=== PATIENT | female | born 1990 | race Hispanic/Latino ===

== ENCOUNTER 2024-12-17 00:55 | Emergency (ER) | payer SELFPAY ==
[2024-12-17 01:03] VITALS: BP 121/77
[2024-12-17 01:23] LABS: Urine Albumin 3+ (Neg - Trace); Urine Bilirubin Negative (Negative); Urine Character Cloudy (Clear); Urine Color Amber; Urine Glucose Negative (Negative); Urine Ketone Negative (Negative); Urine Leukocyte 3+ (Negative); Urine Nitrite Positive (Negative); Urine Occult Blood 4+ (Negative); Urine Urobilinogen 1+ (Neg - 1+)
[2024-12-17 01:33] LABS: Urine Amorphous Seen; Urine Red Blood Cell >100 /HPF (0-2); Urine Squamous Cell >30 /LPF (Few); Urine White Cell >100 /HPF (0-5)
[2024-12-17 01:34] LABS: Urine Bacteria Many (Negative)
[2024-12-17 03:16] LABS: HCG, Urine Qualitative Screen Negative
--- NOTE | 2024-12-17 03:17 | ED.GENMED ---
History of Present Illness
General
Chief Complaint: Urinary Symptoms
Source: patient
Time Seen by Provider: 12/17/24 02:57
Nursing documentation reviewed up to this point in time: agreed with
History of Present Illness
History of Present Illness:
Pleasant 34-year-old female presents to the emergency department with urgency, frequency, and dysuria. She did note some hematuria. Her symptoms began around 4 PM but worsened this evening. She states that she has a history of frequent UTIs about
6 years ago but has not had one since. Denies fever, chills, back pain, or shortness of breath. Reports no other complaints at this time.
Review of Systems
Review of Systems
Allergies reviewed?: Yes
All Other Systems: ROS reviewed and negative except as documented in HPI and ROS
Constitutional: Reports no symptoms
EENT: Reports no symptoms
Respiratory: Reports no symptoms
Cardiac: Reports no symptoms
ABD/GI: Reports no symptoms
: Reports dysuria, frequency, urgency and bleeding
Musculoskeletal: Reports no symptoms
Skin: Reports no symptoms
Neurological: Reports no symptoms
Endocrine: Reports no symptoms
Hematologic/Lymphatic: Reports no symptoms
Psychiatric: Reports no symptoms
Phy Exam
General Physical Exam
General Presentation: well appearing and mild distress
General age: appears stated age
General Skin: warm and dry
General Habitus: normal
General Hydration: appears well hydrated
Cardiovascular Exam
Cardiovascular Exam: regular rate/rhythm, no edema and no gallop
Pulmonary Exam
Pulmonary Exam: lungs clear and no respiratory distress
Musculoskeletal Exam
Musculoskeletal Exam: full ROM
Skin Exam
Skin Exam: normal color and warm/dry
Psychiatric Exam
Psychiatric Exam: normal mood/affect
Course
Orders/Labs/Results
Orders:
Orders
12/17/24 01:12
HCG, Urine Qualitative Screen Urgent
Date Specimen was Collected: 12/17/24
Time Specimen was Collected: 01:08
Comment: ADD ON
Urinalysis Reflex To Culture Urgent
Date Specimen was Collected: 12/17/24
Time Specimen was Collected: 01:08
Urine Microscopic Reflex Cult Urgent
Urine Culture Urgent
KENDALL Source: U
Specimen Description:
Date Specimen was Collected: 12/17/24
Time Specimen was Collected: 01:08
12/17/24 03:06
Add On- LAB Urgent
Tests Added?: urine hcg
12/17/24 03:16
Cephalexin Monohydrate [Keflex] 500 mg PO NOW STA
Phenazopyridine HCl [Pyridium] 200 mg PO NOW STA
Abnormal Lab Results
12/17/24
01:12
Ur Occult Blood Reflex 4+ A
(Negative)
Urine Nitrite (Reflex) Positive A
(Negative)
Leukocyte Esterase Rfl 3+ A
(Negative)
Urine RBC >100 A /HPF
(0-2)
Urine WBC (Reflex) >100 A /HPF
(0-5)
Urine Bacteria (Reflex) Many A
(Negative)
Urine Albumin (Reflex) 3+ A
(Neg - Trace)
Vital Signs
Initial and Last Documented VS:
Initial Vital Signs
Temp Pulse Resp BP Pulse Ox
97.7 F 79 14 121/77 100
12/17/24 01:03 12/17/24 01:03 12/17/24 01:03 12/17/24 01:03 12/17/24 01:03
Last Documented Vital Signs
Temp Pulse Resp BP Pulse Ox
97.7 F 79 14 121/77 100
12/17/24 01:03 12/17/24 01:03 12/17/24 01:03 12/17/24 01:03 12/17/24 01:03
*Critical Care Note
Total Time (30-74mins, 75-104mins- exclusive of procedures): Not Applicable
ED Attending Note
-
Portions of this chart may have been created with voice recognition software.� Occasional wrong word or��sound alike� substitutions may have occurred due to the inherent limitations of voice recognition software.
Discharge Plan
Departure
Patient Disposition: Home (Routine Discharge)
Date of Disposition: 12/17/24
Time of Disposition: 03:18
Patient with high blood pressure during this ER visit?: Yes
Condition: Good
Discharge Problem:
Urinary tract infection
Instructions: Urinary Tract Infection, Adult (DC)
Prescriptions:
New
cephalexin 500 mg capsule
500 mg PO BID 7 Days Qty: 14 0RF
phenazopyridine [Pyridium] 100 mg tablet
100 mg PO TID PRN (Reason: Pain) Qty: 7 0RF
Referrals:
[facility] [Outside]
NONE,* [Family Provider] -
Activity Restrictions/Additional Instructions:
Your prescriptions were sent electronically to the pharmacy that you specified.
It was a pleasure meeting you and taking part in your care. We hope for your continued healing and wellness.
Please read discharge instructions in their entirety. However, they are for general education and may not describe your exact diagnosis at discharge. Information on your ER visit and medical conditions were discussed with you along with appropriate
follow up information...
If indicated, please take your medications as instructed and indicated on discharge paperwork.
Please schedule a follow up appointment as directed. Call to schedule an appointment
Please return to the emergency department with ANY change in, persisting, or worsening of symptoms. If any of your symptoms do not improve, or persist, or become more severe within 6-12 hours, please return to the emergency department for further
care.
Please return to the emergency department if you develop a headache, neck pain/stiffness, fever greater than 100.4F, chest pain, shortness of breath, persistent nausea, vomiting, slurred speech, difficulty walking, numbness/tingling, weakness, signs
of infection or any other symptoms that are worrisome to you.
If you have any questions or concerns please do not hesitate to call the Hospital at or E-mail me directly at [email or web address]
Interventions
Interventions:
*Risk Screen - Suicide Last Done: 12/17/24 01:03
*General Assessment Last Done: 12/17/24 03:01
*Neglect/Abuse Screening Last Done: 12/17/24 03:01
*ED COVID-19 Vaccine History Last Done: 12/17/24 03:01
ED-Female Genitourinary Assessment Last Done: 12/17/24 03:01
Discharge Date and Time
Print Language: TURKMEN
[2024-12-17] MEDS: KEFLEX 500 MG PO (03:35)
[2024-12-17] MEDS: Pyridium 200 MG PO (03:35)
== END 2024-12-17 03:40 | disposition home or self-care (01) ==
LOC: EMR 00:55
PROVIDERS: EMERGENCY PHYSICIAN Student in an Organized Health Care Education/Training Program
DX: N39.0 Urinary tract infection, site not specified (principal); Z87.440 Personal history of urinary (tract) infections
CPT/HCPCS: 99282; 81003; 81015; 81025; 87077; 87086; 87186

== ENCOUNTER 2025-06-13 10:05 | Emergency (ER) | payer SELFPAY ==
[2025-06-13 10:13] VITALS: BP 102/71
--- NOTE | 2025-06-13 12:09 | ED.GENMED ---
History of Present Illness
General
Chief Complaint: Abdominal Pain
Source: patient
Exam Limitations: none
Time Seen by Provider: 06/13/25 11:09
Nursing documentation reviewed up to this point in time: agreed with
History of Present Illness
History of Present Illness:
34-year-old female with no significant past medical history presents with significant mid-upper abdominal pain that began yesterday. The pain radiated to both sides under the ribs, extending to the back, and was associated with pain in the R
shoulder. The patient initially thought the pain was due to gas, but it worsened progressively, accompanied by a burning sensation. When the pain became severe, the patient vomited once, large amount, which provided some relief. The pain decreased
post-vomiting but recurred later, although it was not as intense. The patient rated her current pain as 'achy'
The patient had a bowel movement before vomiting, which was initially soft but then hard, suggesting constipation. There was no change in stool color reported. Denies fever, felt chilled yesterday.
Past History
Past History
ED Past Medical History: None
ED Past Surgical History: None
Social History
Tobacco: Non-smoker
Alcohol: None
Personal:
Living: with family
Employment: Employed
Review of Systems
Review of Systems
Allergies reviewed?: Yes
All Other Systems: ROS reviewed and negative except as documented in HPI and ROS
Constitutional: Denies fever
Respiratory: Denies trouble breathing
Cardiac: Denies chest pain
ABD/GI: Reports abdominal pain, nausea and vomiting; Denies diarrhea
Phy Exam
Physical Exam
Physical Exam:
GENERAL: No acute distress. A&Ox3.
CONSTITUTIONAL: Afebrile.
EYES: clear, conjunctivae normal
ENMT: moist mucus membranes, Pharynx nl
RESPIRATORY: Regular respirations, nonlabored, lungs clear.
CARDIOVASCULAR: Regular rate and rhythm, no murmurs, no rubs.
GI: Soft, tender epigastrium, normal BS
MUSCULOSKELETAL: Moves with ease. Well perfused.
SKIN: Warm, dry, pink
PSYCH: Normal mood and affect. Well kept, interactive and appropriate
NEUROLOGIC: Awake, alert and oriented. No focal neurological deficits
Course
Orders/Labs/Results
Orders:
Orders
06/13/25 12:09
US Abdomen Complete/Upper Urgent
Comment:
Reason For Exam: pain across upper abdomen to R shoulder, n/v
06/13/25 13:36
Complete Blood Count/With Diff Urgent
Comprehensive Metabolic Panel Urgent
Lipase Urgent
Abnormal Lab Results
06/13/25
13:36
MCHC 32.7 L g/dL
(33.0-37.0)
Chloride 108 H mmol/L
(98-107)
AST 58 H U/L
(14-36)
ALT 91 H U/L
(0-35)
06/13/25 13:36
06/13/25 13:36
Vital Signs
Initial and Last Documented VS:
Initial Vital Signs
Temp Pulse Resp BP Pulse Ox
97.9 F 81 20 102/71 98
06/13/25 10:13 06/13/25 10:13 06/13/25 10:13 06/13/25 10:13 06/13/25 10:13
Last Documented Vital Signs
Temp Pulse Resp BP Pulse Ox
97.9 F 81 20 102/71 98
06/13/25 10:13 06/13/25 10:13 06/13/25 10:13 06/13/25 10:13 06/13/25 12:15
MDM/Problems Addressed
Differential Diagnosis Includes:
Cholecystitis, gastritis, PUD, pancreatitis, GERD, biliary colic
MDM/Problems Addressed:
34-year-old female with no significant past medical history presents with significant mid-upper abdominal pain that began yesterday. The pain radiated to both sides under the ribs, extending to the back, and was associated with pain in the R
shoulder. The patient initially thought the pain was due to gas, but it worsened progressively, accompanied by a burning sensation. When the pain became severe, the patient vomited once, large amount, which provided some relief. The pain decreased
post-vomiting but recurred later, although it was not as intense. The patient rated her current pain as 'achy'
The patient had a bowel movement before vomiting, which was initially soft but then hard, suggesting constipation. There was no change in stool color reported. Denies fever, felt chilled yesterday.
1:30 PM:
Ultrasound radiology report read: IMPRESSION:
Cholelithiasis; gallbladder is filled with multiple shadowing gallstones. No secondary findings for acute cholecystitis.
Common bile duct is minimally dilated for patient age measuring up to 6 mm. No intraductal calculi appreciated.
6 mm nephrolith within the midpole of the left kidney.
Awaiting lab results, patient states pain is minimal at this time
2:10 PM: Ultrasound results discussed with patient, CBC normal, CMP with mild elevation in AST, ALT, total bilirubin normal,
Lipase normal
Patient states pain is minimal at this time
Discussed bland diet, follow-up with surgery, ibuprofen as needed for pain, return instructions reviewed.. Copy of ultrasound report given to her
Case discussed with Dr. Edwards who evaluated lab work and ultrasound and agrees with assessment and plan
*Pulse Oximetry
SaO2: 98
Oxygen Mode of Delivery: Room air
Patient hypoxic: not evaluated
*Critical Care Note
Total Time (30-74mins, 75-104mins- exclusive of procedures): Not Applicable
ED Attending Note
-
Portions of this chart may have been created with voice recognition software.� Occasional wrong word or��sound alike� substitutions may have occurred due to the inherent limitations of voice recognition software.
Discharge Plan
Departure
Patient Disposition: Home (Routine Discharge)
Date of Disposition: 06/13/25
Time of Disposition: 14:54
Patient with high blood pressure during this ER visit?: No
Condition: Good
Discharge Problem:
Abdominal pain, Biliary colic symptom
Instructions: Petroleum diet, Gallstones - ED (DC), Abdominal Pain
Prescriptions:
No Action
cephalexin 500 mg capsule
500 mg PO BID 7 Days Qty: 14 0RF
phenazopyridine [Pyridium] 100 mg tablet
100 mg PO TID PRN (Reason: Pain) Qty: 7 0RF
Referrals:
NONE,* [Family Provider, Internal Medicine]
Teja Leone MD [Active, Surgical] - Next open appointment
Activity Restrictions/Additional Instructions:
As we discussed, you do have gallstones and you may be experiencing biliary colic
Call and make an appointment with the surgeon to discuss if you should have your gallbladder removed.
Return here immediately for worsening pain, fever, vomiting more than once or feeling sicker in any way.
Stick to a bland diet
Drink plenty of fluids
Ibuprofen 600 mg, with food, every 6 hours as needed for pain.
Interventions
Interventions:
*Risk Screen - Suicide Last Done: 06/13/25 10:13
*General Assessment Last Done: 06/13/25 13:37
*Neglect/Abuse Screening Last Done: 06/13/25 10:13
*ED- Fall Risk Assessment Last Done: 06/13/25 13:37
*Nursing Disposition Last Done: 06/13/25 15:46
OX-Rluyve-Msbinwyxzr Assessment Last Done: 06/13/25 13:37
Discharge Date and Time
Discharge Date/Time: 06/13/25 15:47
Print Language: BURUNDIAN
[2025-06-13 13:46] LABS: Hematocrit 38.8 % (37.0-47.0); Hemoglobin 12.7 g/dL (12.0-16.0); Mean Corp Hgb Conc. 32.7 g/dL (33.0-37.0); Mean Corpuscular Volume 86.2 fL (81.0-99.0); Nucleated Red Blood Cells % 0 %; Platelet Count 310 10^3/uL (130-400); Red Cell Dist. Width 13.0 % (11.5-14.5)
[2025-06-13 14:02] LABS: ALT (SGPT) 91 U/L (0-35); AST (SGOT) 58 U/L (14-36); Albumin 4.1 g/dl (3.5-5.0); Alkaline Phosphatase 86 U/L (38-126); Blood Urea Nitrogen 14 mg/dl (7-17); Calcium 9.0 mg/dl (8.4-10.2); Carbon Dioxide 25 mmol/L (22-30); Chloride 108 mmol/L (98-107); Glucose 90 mg/dl (70-99); Lipase 69 U/L (23-300); Potassium 4.0 mmol/L (3.5-5.1); Sodium 136 mmol/L (135-145); Total Protein 6.8 g/dl (6.3-8.2); eGFR > 60.00
== END 2025-06-13 15:47 | disposition home or self-care (01) ==
LOC: EMR 10:05
PROVIDERS: Registered Nurse; EMERGENCY PHYSICIAN Emergency Medicine
DX: K80.70 Calculus of gallbladder and bile duct without cholecystitis without obstruction (principal); N20.0 Calculus of kidney; R10.10 Upper abdominal pain, unspecified
CPT/HCPCS: 99284; 76700; 80053; 83690; 85025